=== PATIENT | male | born 1940 | race Hispanic/Latino ===

== ENCOUNTER 2016-11-22 10:26 | Outpatient (CLI) | payer BC | END 2016-11-22 10:27 | disposition home or self-care (01) | LOC: CT 10:26 | PROVIDERS: ATTEND Nurse Practitioner | DX: I65.23 Occlusion and stenosis of bilateral carotid arteries (principal); I71.4 Abdominal aortic aneurysm, without rupture | CPT/HCPCS: 36415; 82565; 84520 ==

== ENCOUNTER 2017-06-22 07:28 | Day surgery (SDC) | payer BC, MEDICARE ==
[~2017-06-22 07:28] MED LIST: ANCEF/STERILE WATER 2 GM/20 ML 2 GM/20 ML SYRINGE IV NR; NACL 0.9% 1000 ML 1,000 ML IV SCH
[2017-06-22 09:02] LABS: Hematocrit 41.1 % (35.5-45.6); Hemoglobin 13.6 gm/dl (11.8-15.2); Mean Corpuscular HGB Conc 33 % (32-34); Mean Corpuscular Hemoglobin 31 pg (28-32); Mean Corpuscular Volume 95 fl (84-94); Platelet Count 202 K/mm3 (140-440); Red Blood Count 4.34 M/mm3 (3.65-5.03); Red Cell Distribution Width 13.4 % (13.2-15.2)
[2017-06-22 09:18] LABS: Calcium 8.6 mg/dL (8.4-10.2)
[2017-06-22 09:30] LABS: INR 0.95 (0.87-1.13)
[2017-06-22 10:34] LABS: Basophils % (Manual) 0 % (0.0-1.8); Platelet Estimate Consistent w Auto; RBC Morphology Normal; Total Cells Counted 100
[2017-06-22] MEDS ORDERED: HEPARIN 10,000 UNITS/10 ML ONE (13:15)
[2017-06-22] MEDS ORDERED: VERSED ONE (13:15)
[2017-06-22] MEDS ORDERED: SUBLIMAZE ONE (13:15)
[2017-06-22] MEDS ORDERED: XYLOCAINE 2% INFILTRATI ONE (13:15)
[2017-06-22] MEDS ORDERED: HEPARIN/NS 5000 UNIT/500ML(CATH LAB) 500 ML IR ONE (13:48)
[2017-06-22] MEDS ORDERED: APRESOLINE ONE (15:02)
[2017-06-22] MEDS ORDERED: APRESOLINE IV ONE (15:05)
--- NOTE | 2017-06-22 16:46 | Short Stay Summary ---
Short Stay Documentation Date of service: 06/22/17 Narrative H&P: 76-year-old male with right internal carotid artery stenosis with abnormal ultrasound and inability to perform CT angiogram due to elevated creatinine. - History H&P: obtained from office - Allergies and Medications Current Medications: Allergies No Known Allergies Allergy (Verified 12/13/16 10:50) Home Medications Medication Instructions Recorded Confirmed Last Taken Type Aspirin EC [Aspirin Enteric Coated 81 mg PO QDAY 06/22/17 06/22/17 06/21/17 History TAB] Azelastine HCl 0.05% 1 puff IH QDAY 06/22/17 06/22/17 06/22/17 06:00 History Active Medications Cefazolin Sodium (Ancef/Sterile Water 2 Gm/20 Ml) 2 gm in 20 mls @ 80 mls/hr IV PREOP NR PRN Reason: Protocol Stop: 06/22/17 23:59 Sodium Chloride (Nacl 0.9% 1000 Ml) 1,000 mls @ 42 mls/hr IV DIRECT MAUDE - Physical exam General appearance: no acute distress HEENT: EOMI Lungs: Normal air movement - Brief post op/procedure progress note Date of procedure: 06/22/17 Pre-op diagnosis: Right internal carotid stenosis Post-op diagnosis: same Procedure: carotid angiography Anesthesia: local Surgeon: HALEY MEADOWS Estimated blood loss: minimal Condition: stable - Hospital course Hospital course: Ready for discharge 4 hrs after procedure. - Disposition Condition at discharge: Stable Disposition: [id number] TO HOME OR SELFCARE - Discharge Diagnoses (1) Carotid artery stenosis Status: Acute Short Stay Discharge Plan Activity: advance as tolerated Weight Bearing Status: Weight Bear as Tolerated (no heavy lifting for 1 week, do not lift more than 10 lbs) Diet: advance as tolerated Wound: keep clean and dry (try to keep from getting wet for 1 week) Follow up with: HUBERT CRAVEN MD [Primary Care Provider] - 7 Days
--- NOTE | 2017-06-22 16:53 | Operative Report ---
Operative Report Operative Report: EXAM: 1. Ultrasound-guided access of the right common femoral artery. 2. Selection of the right innominate artery 3. Selection of the right common carotid artery with angiography in multiple projections DATE: 06/22/17 SENIOR STORAGE ADMINISTRATOR: HALEY MEADOWS MD INDICATION: Asymptomatic right carotid artery stenosis with ICA to CCA ratio of greater than [address] angiogram due to elevated creatinine. MEDICATIONS: Please see nursing report for full details. DEVICES: [ ] CONTRAST: 28 mL's of nonionic contrast PROCEDURE: The risks, benefits, and alternatives were discussed with the family; written informed consent was obtained. The right groin was prepped and draped in a sterile fashion. The right common femoral artery was evaluated with ultrasound and was patent. Under direct ultrasound guidance, the right common femoral artery was accessed with a 21- gauge micropuncture needle. 0.018 inch wire was passed through the needle into the aorta. Needle was exchanged for transitional dilator. Wire was exchanged for 0.035 inch wire. Transitional dilator was exchanged for a 5 Tristanian sheath. Angiography of the access site was not performed in order to avoid excessive contrast used. The right common femoral artery was accessed using direct ultrasound guidance. Over the 0.035 inch wire, the 5 Tristanian angled catheter was advanced into the aortic arch. The patient was heparinized with 4000 units of heparin. The right innominate artery was selected. The right common carotid artery was selected. Digital subtraction angiography was performed and multiple positions at the level of the neck. Cerebral angiography was not performed in order to avoid excessive contrast used. Digital subtraction angiography demonstrated patency of the common carotid artery and external carotid artery with a severe slightly greater than 70% narrowing in the proximal internal carotid artery a few centimeters after the bifurcation. There is a small slightly ulcerative plaque proximal to the stenotic lesion. The rest of the extracranial carotid artery was patent. All wires, catheters, and sheath were then removed. Pressure was held until hemostasis was achieved. No immediate post procedure complication. Patient tolerated the procedure well. FINDINGS: Please see procedure note above. IMPRESSION: 1. Successful angiography of the right internal carotid artery and common carotid artery in the extracranial circulation. Only one of the 4 vessels was evaluated in order to limit contrast used. 2. Slightly greater than 70% narrowing of the proximal right internal carotid artery.
[2017-06-22 18:07] VITALS: BP 169/89
== END 2017-06-22 18:19 | disposition home or self-care (01) ==
LOC: CATHLABREC 07:28
PROVIDERS: ATTEND Radiology Diagnostic Radiology
DX: I65.21 Occlusion and stenosis of right carotid artery (principal); E78.00 Pure hypercholesterolemia, unspecified; N18.9 Chronic kidney disease, unspecified; Z98.890 Other specified postprocedural states; Z79.82 Long term (current) use of aspirin
CPT/HCPCS: 36222; 36415; 80048; 85007; 85025; 85347; 85610; 85730; 96360; 96361; 96374; 99156; 99157; C1769; J0360; J1644; J2250; J3010; J7030; Q9967